=== PATIENT | female | born 1990 | race American Indian/Alaskan Native ===

== ENCOUNTER 2017-01-13 14:04 | Emergency (ER) | payer SELFPAY ==
[2017-01-13] MEDS ORDERED: TYLENOL PO ONE (14:13)
[2017-01-13] MEDS ORDERED: TYLENOL ONE (14:23)
--- NOTE | 2017-01-13 18:37 | Emergency Department Report ---
ED General Adult HPI - General Chief complaint: Fever Stated complaint: HEADACHE Time Seen by Provider: 01/13/17 18:16 Source: patient Mode of arrival: Ambulatory Limitations: No Limitations - History of Present Illness Initial comments: pt is a 26 y/o aaf with of UTI who who presents for right superpubic pain with associated headache and intermittent dizziness, symptoms x 2 days hx of same 2 months ago dx with uti, pt endorse ensure inplants for family planning denies sexual contacts, pt with currnet menses, does endorse urinary frequency and urgency, denies fever or chills, there is no hx of renal stones, fibroids or ovarian cysts, pt states headache and dizziness resolve with tylenol po given in triage, todays symptoms are similar to symptoms of past in type location and intensity. Onset/Timin -: days(s) Location: head, abdomen Radiation: non-radiation Severity scale (0 -10): 6 Quality: aching Consistency: intermittent Worsens with: rest Associated Symptoms: headaches. denies: confusion, chest pain, cough, diaphoresis, fever/chills, loss of appetite, malaise, nausea/vomiting, rash, seizure, shortness of breath, syncope, weakness Treatments Prior to Arrival: none - Related Data Previous Rx's Medication Instructions Recorded Last Taken Type Gentamicin 0.3% Ophth Oint 1 applicatio OD QHS #1 tube 01/10/16 Unknown Rx Gentamicin 0.3% Ophth Soln 1 drops OD Q4H #1 bottle 01/10/16 Unknown Rx Cephalexin [Keflex] 500 mg PO BID #14 capsule 01/13/17 Unknown Rx Naproxen 500 mg PO BID PRN #30 tablet 01/13/17 Unknown Rx Allergies Allergy/AdvReac Type Severity Reaction Status Date / Time No Known Allergies Allergy Unverified 01/10/16 12:27 ED Review of Systems ROS: Stated complaint: HEADACHE Other details as noted in HPI Constitutional: denies: chills, fever Eyes: denies: eye pain, eye discharge, vision change ENT: denies: ear pain, throat pain Respiratory: denies: cough, shortness of breath, wheezing Cardiovascular: denies: chest pain, palpitations Endocrine: no symptoms reported Gastrointestinal: abdominal pain (right super pubic ). denies: nausea, vomiting, diarrhea, constipation, hematemesis, melena, hematochezia Genitourinary: denies: urgency, dysuria, discharge Musculoskeletal: denies: back pain, joint swelling, arthralgia Skin: denies: rash, lesions Neurological: denies: headache, weakness, paresthesias Psychiatric: denies: anxiety, depression Hematological/Lymphatic: denies: easy bleeding, easy bruising ED Past Medical Hx - Past Medical History Previous Medical History?: No Additional medical history: Childbirth - Surgical History Past Surgical History?: Yes Additional Surgical History: x2. essure - Social History Smoking Status: Never Smoker Substance Use Type: Alcohol - Medications Home Medications: Home Medications Medication Instructions Recorded Confirmed Last Taken Type Gentamicin 0.3% Ophth Oint 1 applicatio OD QHS #1 tube 01/10/16 Unknown Rx Gentamicin 0.3% Ophth Soln 1 drops OD Q4H #1 bottle 01/10/16 Unknown Rx Cephalexin [Keflex] 500 mg PO BID #14 capsule 01/13/17 Unknown Rx Naproxen 500 mg PO BID PRN #30 tablet 01/13/17 Unknown Rx ED Physical Exam - General Limitations: No Limitations General appearance: alert, in no apparent distress - Head Head exam: Present: atraumatic, normocephalic - Eye Eye exam: Present: normal appearance - ENT ENT exam: Present: mucous membranes moist - Neck Neck exam: Present: normal inspection - Respiratory Respiratory exam: Present: normal lung sounds bilaterally. Absent: respiratory distress - Cardiovascular Cardiovascular Exam: Present: regular rate, normal rhythm. Absent: systolic murmur, diastolic murmur, rubs, gallop - GI/Abdominal GI/Abdominal exam: Present: soft, normal bowel sounds. Absent: distended, tenderness, guarding, rebound, rigid, organomegaly, mass, bruit, pulsatile mass , hernia - Rectal Rectal exam: Present: deferred - Extremities Exam Extremities exam: Present: normal inspection, full ROM, normal capillary refill. Absent: tenderness, pedal edema, joint swelling, calf tenderness - Back Exam Back exam: Present: normal inspection, full ROM. Absent: tenderness, CVA tenderness (R), CVA tenderness (L), muscle spasm, paraspinal tenderness, vertebral tenderness, rash noted - Neurological Exam Neurological exam: Present: alert, oriented X3, CN II-XII intact, normal gait, reflexes normal - Psychiatric Psychiatric exam: Present: normal affect, normal mood - Skin Skin exam: Present: warm, dry, intact, normal color. Absent: rash ED Course Vital Signs 01/13/17 01/13/17 14:13 17:29 Temperature 100 F H Pulse Rate 116 H 97 H Respiratory 18 16 Rate Blood Pressure 100/63 94/61 O2 Sat by Pulse 100 100 Oximetry ED Medical Decision Making - Lab Data Result diagrams: 01/13/17 18:36 01/13/17 18:36 Laboratory Tests 01/13/17 01/13/17 01/13/17 18:36 18:36 19:53 WBC 10.9 RBC 4.43 Hgb 13.4 Hct 38.4 MCV 87 MCH 30 MCHC 35 H RDW 13.5 Plt Count 233 Lymph % (Auto) 13.2 L [place] % (Auto) 6.0 Eos % (Auto) 0.2 Baso % (Auto) 0.4 Lymph # 1.4 [place] # 0.7 Eos # 0.0 Baso # 0.0 Seg Neutrophils % 80.2 H Seg Neutrophils # 8.8 H Sodium 140 Potassium 3.5 L Chloride 99.9 Carbon Dioxide 27 Anion Gap 17 BUN 11 Creatinine 0.6 L Estimated GFR > 60 BUN/Creatinine Ratio 18 Glucose 113 H Calcium 9.1 Total Bilirubin 0.50 AST 14 ALT 8 Alkaline Phosphatase 62 Total Protein 7.2 Albumin 4.0 Albumin/Globulin Ratio 1.3 Urine Color Yellow Urine Turbidity Clear Urine pH 5.0 Ur Specific Venus 1.023 Urine Protein 30 mg/dl Urine Glucose (UA) Neg Urine Ketones 20 Urine Blood Lg Urine Nitrite Neg Ur Reducing Substances Not Reportable Urine Bilirubin Neg Urine Ictotest Not Reportable Urine Urobilinogen 2.0 Ur Leukocyte Esterase Mod Urine WBC (Auto) 113.0 H Urine RBC (Auto) 4.0 U Epithel Cells (Auto) 2.0 Urine Bacteria (Auto) 3+ Urine Mucus 3+ Urine HCG, Qual Negative - Medical Decision Making pt is a 26 y/o aaf with of UTI who who presents for right superpubic pain with associated headache and intermittent dizziness, symptoms x 2 days hx of same 2 months ago dx with uti, pt endorse ensure inplants for family planning denies sexual contacts, pt with currnet menses, does endorse urinary frequency and urgency, denies fever or chills, there is no hx of renal stones, fibroids or ovarian cysts, pt states headache and dizziness resolve with tylenol po given in triage, todays symptoms are similar to symptoms of past in type location and intensity. exam: abd:bs x 4 qds normal no rebound no bruit no hernia , bilat superpubic pain to deep palpation there is no cva tenderness no hematuria n/v , labs: cmp, cbc normal, Ua: WBC, Luekocytes, hr decreased wtih ns 1000, pain is now 2/10 compared to 7/10 upon presentation to ed, pt advise " I feel better and read to go" plan: will tx for uti Keflex 500 mg po bid x 7 days , naproxen 500 mg po bid prn pain , pt will follow up with primary in 3 days and [facility] for Ensure removal upon appointment, Dr. Clarice SCHMITT, [facility] [phone] Critical care attestation.: If time is entered above; I have spent that time in minutes in the direct care of this critically ill patient, excluding procedure time. ED Disposition Clinical Impression: UTI (urinary tract infection) Qualifiers: Urinary tract infection type: acute cystitis Hematuria presence: without hematuria Qualified Code(s): N30.00 - Acute cystitis without hematuria Disposition: TO HOME OR SELFCARE Is pt being admited?: No Does the pt Need Aspirin: No Condition: Good Instructions: Urinary Tract Infection in Women (ED) Prescriptions: Cephalexin [Keflex] 500 mg PO BID #14 capsule Naproxen 500 mg PO BID PRN #30 tablet PRN Reason: Pain Referrals: ROSHAN ARNETT MD [Primary Care Provider] - 3-5 Days JUAN ZAZUETA MD [Staff Physician] - 3-5 Days Forms: Work/School Release Form(ED) Time of Disposition: 21:03
[2017-01-13] MEDS ORDERED: ZOFRAN IV ONE (18:43)
[2017-01-13] MEDS ORDERED: NACL 0.9% 1000 ML 1,000 ML IV ONE (18:43)
[2017-01-13 19:06] LABS: Basophils % (Auto) 0.4 % (0.0-1.8); Eosinophils % (Auto) 0.2 % (0.0-4.3); Hematocrit 38.4 % (30.3-42.9); Hemoglobin 13.4 gm/dl (10.1-14.3); Mean Corpuscular HGB Conc 35 % (30-34); Mean Corpuscular Hemoglobin 30 pg (28-32); Mean Corpuscular Volume 87 fl (79-97); Platelet Count 233 K/mm3 (140-440); Red Blood Count 4.43 M/mm3 (3.65-5.03); Red Cell Distribution Width 13.5 % (13.2-15.2); White Blood Count 10.9 K/mm3 (4.5-11.0)
[2017-01-13 19:27] LABS: Alanine Aminotransferase 8 units/L (7-56); Albumin/Globulin Ratio 1.3 %; Alkaline Phosphatase 62 units/L (35-129); Anion Gap 17 mmol/L; BUN/Creatinine Ratio 18; Blood Urea Nitrogen 11 mg/dL (7-17); Calcium 9.1 mg/dL (8.4-10.2); Carbon Dioxide 27 mmol/L (22-30); Chloride 99.9 mmol/L (98-107); Glucose 113 mg/dL (65-100); Potassium 3.5 mmol/L (3.6-5.0); Sodium 140 mmol/L (137-145); Total Protein 7.2 g/dL (6.3-8.2)
[2017-01-13 20:36] LABS: Bacteria,Urine 3+ /HPF (Negative); Bilirubin,Urine NEG (Negative); Blood,Urine LG (Negative); Ketones,Urine 20 mg/dL (Negative); Leukocyte Esterase,Urine MOD (Negative); Mucus,Urine 3+ /HPF; Nitrite,Urine NEG (Negative)
[2017-01-13 21:12] VITALS: BP 102/63
== END 2017-01-13 21:11 | disposition home or self-care (01) ==
LOC: ED 14:04
DX: N39.0 Urinary tract infection, site not specified (principal)
CPT/HCPCS: 36415; 80053; 81001; 81025; 85025; 96361; 96374; 99283; J2405; J7030